=== PATIENT | female | born 1990 | race Caucasian/White ===

== ENCOUNTER 2021-09-07 05:55 | Observation (INO) | payer MEDICAID ==
[~2021-09-07] VITALS: Ht 166.4 cm; Wt 115.2 kg
== END 2021-09-07 07:55 | disposition home or self-care (01) ==
LOC: SPU 05:55
PROVIDERS: ADMIT Obstetrics & Gynecology; ATTEND Obstetrics & Gynecology
DX: O62.9 Abnormality of forces of labor, unspecified (principal); Z3A.36 36 weeks gestation of pregnancy
CPT/HCPCS: 81002; G0378

== ENCOUNTER 2021-09-21 22:20 | Observation (INO) | payer MEDICAID ==
[~2021-09-21] VITALS: Ht 166.4 cm; Wt 114.8 kg
== END 2021-09-22 00:15 | disposition home or self-care (01) ==
LOC: SPU 22:20
PROVIDERS: ADMIT Obstetrics & Gynecology; ATTEND Obstetrics & Gynecology
DX: O62.9 Abnormality of forces of labor, unspecified (principal); Z3A.38 38 weeks gestation of pregnancy
CPT/HCPCS: 81002; G0378

== ENCOUNTER 2021-09-26 23:45 | Inpatient (IN) | payer MEDICAID ==
[~2021-09-26] VITALS: Ht 166.4 cm; Wt 114.8 kg
[2021-09-27] MEDS ORDERED: TERBUTALINE SULFATE 1 MG/ML VIAL SUBCUT ONE (00:15)
[2021-09-27] MEDS ORDERED: DINOPROSTONE 10 MG SUPP VG ONE (00:15)
[2021-09-27] MEDS ORDERED: AMPICILLIN SODIUM 2 GM in NS 100 ML IV ONE (00:15)
[2021-09-27] MEDS ORDERED: NALBUPHINE HCL 10 MG/ML AMP IM PRN (00:15)
[2021-09-27] MEDS ORDERED: OXYTOCIN/0.9 % SODIUM CHLORIDE 1,000 ML IV SCH ×2 (00:15→21:15)
[2021-09-27] MEDS ORDERED: NALBUPHINE HCL 10 MG/ML AMP IVP PRN (00:15)
[2021-09-27] MEDS ORDERED: MISOPROSTOL 100 MCG TABLET (CYTOTEC) PO PRN ×2 (00:15→00:45)
[2021-09-27] MEDS: LR 1,000 ML IV SCH ×3 (00:41→18:02)
[2021-09-27 00:42] LABS: BASOPHILS % (AUTO) 0.4 % (0.0-2.0); EOSINOPHILS # (AUTO) 0.2 K/uL (0.0-0.4); EOSINOPHILS % (AUTO) 1.6 % (0.0-4.0); HEMATOCRIT 34.5 % (36-48); HEMOGLOBIN 11.7 g/dL (12.0-16.0); LYMPHOCYTES # (AUTO) 1.4 K/uL (1.0-5.5); LYMPHOCYTES % (AUTO) 14.2 % (20.5-51.5); MEAN CORPUSCULAR HEMOGLOBIN 32 pg (27-31); MEAN CORPUSCULAR HGB CONC 34 % (32-36); MEAN CORPUSCULAR VOLUME 94 fL (79.0-98.0); MONOCYTES # (AUTO) 0.6 K/uL (0.0-1.0); MONOCYTES % (AUTO) 6.3 % (1.7-9.3); NEUTROPHILS # (AUTO) 7.6 K/uL (1.8-7.7); NEUTROPHILS % (AUTO) 77.5 % (40.0-70.0); PLATELET COUNT (AUTO) 202 K/uL (130-430); RED BLOOD CELL COUNT(AUTO) 3.69 MIL/uL (4.2-6.2); RED CELL DISTRIBUTION WIDTH 13.4 % (9.0-15.0); WHITE BLOOD COUNT (AUTO) 9.7 K/uL (4.8-10.8)
[2021-09-27] MEDS ORDERED: ONDANSETRON HCL 4 MG/2 ML VIAL IVP PRN (01:00)
[2021-09-27] MEDS ORDERED: MORPHINE SULFATE 10 MG/ML VIAL IVP PRN (01:00)
[2021-09-27] MEDS ORDERED: NALOXONE HCL 0.4 MG/ML AMP (NARCAN) IVP PRN (01:00)
[2021-09-27 03:57] VITALS: BP_SYST 134
[2021-09-27] MEDS ORDERED: AMPICILLIN SODIUM 1 GM in NS 50 ML IV SCH (04:15)
[2021-09-27] MEDS ORDERED: fentaNYL CITRATE/PF 100 MCG/2 ML AMP ONE (17:36)
[2021-09-27] MEDS ORDERED: ROPIVACAINE HCL/PF 0.2% 200 ML ONE (17:36)
[2021-09-27] MEDS ORDERED: DIPHENHYDRAMINE INJ 50 MG/ML VIAL ONE (17:51)
[2021-09-27] MEDS ORDERED: FENT2mCg/mL-ROPIVA0.2%/NS EPID 200 ML EP SCH (18:00)
[2021-09-27] MEDS ORDERED: LR 500 ML IV ONE (18:00)
[2021-09-27] MEDS ORDERED: DIPHENHYDRAMINE INJ 50 MG/ML VIAL IVP PRN (18:00)
[2021-09-27] MEDS ORDERED: DERMOPLAST SPRAY TP PRN (21:15)
[2021-09-27] MEDS ORDERED: WITCH HAZEL LEAF 1 MED.PAD MED.PAD TP PRN (21:15)
[2021-09-27] MEDS ORDERED: HYDROCORTISONE 0.5% CREAM 28.4 GM CREAM.GM. TP PRN (21:15)
[2021-09-27] MEDS ORDERED: MEASLES,MUMPS&RUBELLA VACC/PF 12500 UNIT/0.5 ML VIAL SUBQ PRN (21:15)
[2021-09-27] MEDS ORDERED: IBUPROFEN 600 MG TABLET PO PRN (21:15)
[2021-09-27] MEDS ORDERED: ANUSOL 1 EA SUPP.RECT (PREPARATION H) RC PRN (21:15)
[2021-09-27] MEDS ORDERED: OXYTOCIN/0.9 % SODIUM CHLORIDE 1,000 ML IV ONE (21:15)
[2021-09-27] MEDS ORDERED: RHO(D) IMMUNE GLOBULIN/MALTOSE 1500 UNITS/1.3 ML (WINHRO) IM PRN (21:15)
[2021-09-27] MEDS ORDERED: TEMAZEPAM 15 MG CAPSULE PO PRN (21:15)
[2021-09-27] MEDS ORDERED: LANOLIN 7 GM OINT. TP PRN (21:15)
[2021-09-27] MEDS ORDERED: DIPH-TET-PERTUS Vaccine 0.5 ML VIAL (ADACEL) I.M. PRN (21:15)
[2021-09-27] MEDS: IBUPROFEN 800 MG TABLET PO PRN (23:51)
[2021-09-28 07:03] LABS: HEMATOCRIT 30.2 % (36-48); HEMOGLOBIN 10.1 g/dL (12.0-16.0)
[2021-09-28] MEDS: IBUPROFEN 800 MG TABLET PO PRN ×3 (08:02→20:48)
[2021-09-28] MEDS ORDERED: DOCUSATE SODIUM 100 MG CAPSULE PO SCH (09:00)
--- NOTE | 2021-09-28 13:59 | NUR ---
Dietitian Recommendations Regular, high fiber diet. Fiber One bar w/ dinner. LP, RD Please refer to Nutrition Assessment for details. Signed: 09/28/21 at 1400 by Maria M WILLOUGHBY <Co-Signature Required> Co-Signed: 09/28/21 at [address] Addendum: 09/28/21 at 1400 by Maria M WILLOUGHBY Amended: Links added.
[2021-09-28] MEDS ORDERED: SENNOSIDES/DOCUSATE SODIUM 1 TAB TABLET(SENOKOT-S) PO SCH (21:00)
== END 2021-09-28 22:15 | disposition home or self-care (01) | DRG 560 ==
LOC: SPU 23:45
PROVIDERS: ADMIT Obstetrics & Gynecology; ATTEND Obstetrics & Gynecology
PROC: 10E0XZZ Delivery of Products of Conception, External Approach (ICD-10-PCS; principal; 2021-09-27)
PROC: 3E0P7VZ Introduction of Hormone into Female Reproductive, Via Natural or Artificial Opening (ICD-10-PCS; 2021-09-27)
PROC: 3E0R3BZ Introduction of Anesthetic Agent into Spinal Canal, Percutaneous Approach (ICD-10-PCS; 2021-09-27)
PROC: 00HU33Z Insertion of Infusion Device into Spinal Canal, Percutaneous Approach (ICD-10-PCS; 2021-09-27)
DX: O77.0 Labor and delivery complicated by meconium in amniotic fluid (principal); Z37.0 Single live birth; O99.344 Other mental disorders complicating childbirth; F41.9 Anxiety disorder, unspecified; Z20.822 Contact with and (suspected) exposure to COVID-19; J45.909 Unspecified asthma, uncomplicated; O99.52 Diseases of the respiratory system complicating childbirth; Z3A.39 39 weeks gestation of pregnancy
CPT/HCPCS: 36415; 81002; 85018; 85025; 86592; 86886; 86900; 86901; J0290; J1200; J2270; J2590; J3010